=== PATIENT | female | born 1995 | race African-American/Black ===

== ENCOUNTER 2018-02-01 14:33 | Emergency (ER) | payer SELFPAY ==
[~2018-02-01] VITALS: Ht 162.6 cm; Wt 90.7 kg
[2018-02-01 14:45] VITALS: BP 101/66
--- NOTE | 2018-02-01 15:27 | Emergency Room Report ---
History of Present Illness General Chief Complaint: Flu Like Symptoms Source: Patient Present Illness HPI 22-year-old female presents to the emergency department complaining of 10 out of 10 in severity sore throat, cough, fevers/chills and headache with associated body aches 2 days. Patient reports that she has been taking ibuprofen which provides minimal relief only temporarily of her fevers and chills. Patient states she is not up-to-date with this year's flu vaccination however she is without other vaccination she reports that she has a couple ill contacts at home. Patient also reports new onset of nausea after taking vitamins on an empty stomach. Patient denies and states she has a girlfriend.Denies ear pain, lethargy, neck pain/stiffness, irritability, photophobia or dehydration. Denies Cp, Palpitations, LOC, AMS, seizures, paresthesias, or changes in Hearing or vision, no Sudden severe WILKINSON. Denies hx of smoking, asthma or COPD. Pt reports swallowing exacerbates her pain. Allergies: Coded Allergies: No Known Allergies (Unverified , 02/01/18) Patient History Past Medical History: see triage record Past Surgical History: none Pertinent Family History: none Last Menstrual Period: 12/24/17 Now: No Immunizations: UTD Reviewed Nursing Documentation: PMH: Agreed; PSxH: Agreed Nursing Documentation-PMH Past Medical History: No Stated History Review of Systems All Other Systems: negative except mentioned in HPI Physical Exam Vital Signs Date Time Temp Pulse Resp B/P (MAP) Pulse Ox O2 Delivery O2 Flow Rate FiO2 02/01/18 14:42 98.2 70 18 101/66 96 Room Air Sp02 EP Interpretation: reviewed, normal General Appearance: no apparent distress, alert, GCS 15, non-toxic Head: normocephalic, atraumatic Eyes: bilateral eye normal inspection, bilateral eye PERRL ENT: hearing grossly normal, normal voice, uvula midline, moist mucus membranes , nasal congestion, tonsillar swelling, pharyngeal erythema Neck: full range of motion Respiratory: lungs clear, normal breath sounds, no respiratory distress, no wheezing, speaking full sentences Cardiovascular #1: regular rate, rhythm, normal capillary refill Gastrointestinal: normal inspection, normal bowel sounds, non tender, non- distended, no guarding Musculoskeletal: back normal, gait/station normal, normal range of motion, non- tender Neurologic: alert, oriented x3, responsive, motor strength/tone normal, sensory intact, normal gait, speech normal, grossly normal Psychiatric: judgement/insight normal Skin: normal color, no rash, warm/dry, well hydrated Lymphatic: no adenopathy Medical Decision Making PA Attestation Dr. boogie is my supervising Physician whom patient management has been discussed with. Diagnostic Impression: Primary Impression: Pharyngitis, acute Qualified Codes: J02.0 - Streptococcal pharyngitis ER Course 22-year-old female presents to the emergency department complaining of 10 out of 10 in severity sore throat, cough, fevers/chills and headache with associated body aches 2 days. Patient reports that she has been taking ibuprofen which provides minimal relief only temporarily of her fevers and chills. Patient states she is not up-to-date with this year's flu vaccination however she is without other vaccination she reports that she has a couple ill contacts at home. Patient also reports new onset of nausea after taking vitamins on an empty stomach. Patient denies and states she has a girlfriend.Denies ear pain, lethargy, neck pain/stiffness, irritability, photophobia or dehydration. Denies Cp, Palpitations, LOC, AMS, seizures, paresthesias, or changes in Hearing or vision, no Sudden severe WILKINSON. Denies hx of smoking, asthma or COPD. Pt reports swallowing exacerbates her pain. Ddx considered but are not limited to URI, pneumonia, PE, strep pharyngitis, meningitis. Vital signs: Pt. is afebrile, the remaining VS are WNL H&PE are most consistent with Pharyngitis, presumed bacterial due to fevers and chills and PE, - no meningeal signs. ORDERS: none required at this time, the diagnosis is clinical ED INTERVENTIONS: Zofran PO-- Pt. declined reported sx resolved. DISCHARGE: At this time pt. is stable for d/c to home. Will provide printed patient care instructions, and any necessary prescriptions. Care plan and follow up instructions have been discussed with the patient prior to discharge. Last Vital Signs Date Time Temp Pulse Resp B/P (MAP) Pulse Ox O2 Delivery O2 Flow Rate FiO2 02/01/18 14:51 70 18 Room Air 02/01/18 14:42 98.2 101/66 96 Disposition: HOME, SELF-CARE Condition: Stable Scripts Codeine/Promethazine Hcl* (PROMETHAZINE-CODEINE SYRUP*) 118 Ml Syrup 5 ML ORAL Q6H PRN for For Cough, #120 ML 0 Refills Prov: Luciana Elkins 02/01/18 Ibuprofen* (MOTRIN*) 600 Mg Tablet 600 MG ORAL THREE TIMES A DAY, #30 TAB 0 Refills Prov: Luciana Elkins 02/01/18 Amoxicillin* (AMOXIL*) 500 Mg Capsule 500 MG ORAL BID for 10 Days, #20 CAP Prov: Luciana Elkins 02/01/18 Referrals: NOT CHOSEN IPA/MD,REFERRING (PCP) Departure Forms: Return to Work Return to Work Date: Feb 05, 2018 Work Restrictions: None Other Restrictions: May return Sooner if Symptoms have resolved. Return to Full Activity: Feb 05, 2018 Patient Instructions: Pharyngitis, [id number], Upper Respiratory Infection, Adult, [id number] Additional Instructions: Take medications as directed. Follow up with a Primary Care Provider in 3-5 days, even if your symptoms have resolved. --Please review list of primary care clinics, if you do not already have a primary care provider Return sooner to ED if new symptoms occur, or current symptoms become worse. Do not drink alcohol, drive, or operate heavy machinery while taking Cough Syrup as this may cause drowsiness. - Please note that this Emergency Department Report was dictated using [employer] security technology software, occasionally this can lead to erroneous entry secondary to interpretation by the dictation equipment. Luciana Elkins Feb 01, 2018 15:27
[2018-02-01] MEDS ORDERED: IBUPROFEN600 MG ORAL (15:32)
[2018-02-01] MEDS ORDERED: AMOXICILLIN500 MG ORAL (15:32)
[2018-02-01] MEDS ORDERED: PROMETHAZINE-C118 M1 ORAL (15:32)
[2018-02-01 15:37] VITALS: BP 108/68
== END 2018-02-01 15:38 | disposition home or self-care (01) ==
LOC: EMR 15:08
DX: J02.9 Acute pharyngitis, unspecified (principal)
CPT/HCPCS: 99283

== ENCOUNTER 2019-03-31 14:06 | Emergency (ER) | payer SELFPAY ==
[~2019-03-31] VITALS: Ht 162.6 cm; Wt 95.3 kg
[~2019-03-31 14:06] MED LIST: AMOXICILLIN500 MG ORAL; IBUPROFEN600 MG ORAL; PROMETHAZINE-C118 M1 ORAL
--- NOTE | 2019-03-31 14:15 | NUR ---
ED Nurse Note: PT. UNAVAILABLE UPON BEING CALLED FOR TRIAGE
--- NOTE | 2019-03-31 14:59 | Emergency Room Report ---
History of Present Illness General Chief Complaint: Back Pain-No Injury Source: Patient Present Illness HPI 23-year-old female presents to the emergency department complaining of 10 out of 10 severity pain to the right side of the lower back and right hamstring progressive x2 days. Patient reports she has a history of chronic pain in the back and states she has never had to stand more than 4 hours at a time and recently she has been standing at work up to 8 hours. Patient denies significant trauma or fall. She denies recent spinal procedures, history of cancer, night sweats or recent unintentional weight loss. She denies midline neck or back pain. denies numbness tingling or loss of sensation or gross motor movements of the extremities, incontinence of bowel or bladder. Denies CP, Palpitations, LOC, AMS, dizziness, Changes in Vision, weakness or a sudden severe headache. Allergies: Coded Allergies: No Known Allergies (Unverified , 02/01/18) Patient History Past Medical History: see triage record Past Surgical History: none Pertinent Family History: none Last Menstrual Period: LAST MONTH Now: No Reviewed Nursing Documentation: PMH: Agreed; PSxH: Agreed Review of Systems All Other Systems: negative except mentioned in HPI Physical Exam Vital Signs Date Time Temp Pulse Resp B/P (MAP) Pulse Ox O2 Delivery O2 Flow Rate FiO2 03/31/19 14:38 99.3 86 15 107/75 (86) 95 Room Air Sp02 EP Interpretation: reviewed, normal General Appearance: no apparent distress, alert, GCS 15, non-toxic Head: normocephalic, atraumatic Eyes: bilateral eye normal inspection, bilateral eye PERRL ENT: hearing grossly normal, normal voice Neck: full range of motion, no bony tend - no midline ttp, tender lateral - left trapezius ttp. Respiratory: chest non-tender, lungs clear, normal breath sounds, speaking full sentences Cardiovascular #1: regular rate, rhythm Musculoskeletal: normal range of motion, gait/station normal, tender - Right lumbar paraspinal and upper gluteal TTP, FROM with exacerbation of pain temporarily in certain flexed positions, no LE weakness, pt. is NVI, no erythema , midline bony ttp, step-offs or obvious deformity. Neurologic: alert, motor strength/tone normal, oriented x3, sensory intact, responsive, speech normal Psychiatric: judgement/insight normal Skin: normal color Medical Decision Making PA Attestation Dr. Nava is my supervising Physician whom patient management has been discussed with. Diagnostic Impression: Primary Impression: Lumbosacral strain Qualified Codes: S39.012A - Strain of muscle, fascia and tendon of lower back , initial encounter Additional Impression: Muscle strain ER Course 23-year-old female presents to the emergency department complaining of 10 out of 10 severity pain to the right side of the lower back and right hamstring progressive x2 days. Patient reports she has a history of chronic pain in the back and states she has never had to stand more than 4 hours at a time and recently she has been standing at work up to 8 hours. Patient denies significant trauma or fall. She denies recent spinal procedures, history of cancer, night sweats or recent unintentional weight loss. She denies midline neck or back pain. denies numbness tingling or loss of sensation or gross motor movements of the extremities, incontinence of bowel or bladder. Denies CP, Palpitations, LOC, AMS, dizziness, Changes in Vision, weakness or a sudden severe headache. Ddx considered but are not limited to Fracture, dislocation, contusion, epidural abscess, Sprain/Strain/Spasm Vital signs: are WNL, pt. is afebrile H&PE are most consistent with lumbosacral back strain. muscle strain. No suspicion of fractures. No symptoms or signs on physical exam which would require emergent imaging. ORDERS: X-ray not required at this time, no spinous process tenderness ED INTERVENTIONS: - None at this time. Pt. will be DC with conservative Tx. DISCHARGE: At this time pt. is stable for d/c to home. Will provide printed patient care instructions, and any necessary prescriptions. Care plan and follow up instructions have been discussed with the patient prior to discharge. Last Vital Signs Date Time Temp Pulse Resp B/P (MAP) Pulse Ox O2 Delivery O2 Flow Rate FiO2 03/31/19 14:38 99.3 86 15 107/75 (86) 95 Room Air Disposition: HOME, SELF-CARE Condition: Stable Referrals: [facility] Departure Forms: Return to Work Return to Work Date: Apr 01, 2019 Work Restrictions: No Heavy Lifting, No Prolonged Standing Other Restrictions: light duty. May return Sooner if Symptoms have resolved. Return to Full Activity: Apr 07, 2019 Patient Instructions: Lumbosacral Strain, Muscle Strain, [id number] Additional Instructions: - - After Emergency Dept. evaluation, It has been determined that you do not have an emergent condition or need for emergent intervention at this time. Given your current presentation and physical exam, it has been determined that you are stable for close outpatient follow-up and treatment. Take medications as directed. Do not drink alcohol, drive, or operate heavy machinery while taking Robaxin ( Muscle Relaxers) as this may cause drowsiness. Follow up with a Primary Care Provider in 3-5 days, even if your symptoms have resolved. --Please review list of primary care clinics, if you do not already have a primary care provider Return sooner to ED if new symptoms occur, or current symptoms become worse. - Please note that this Emergency Department Report was dictated using [employer] collector technology software, occasionally this can lead to erroneous entry secondary to interpretation by the dictation equipment. Luciana Elkins Mar 31, 2019 14:59
[2019-03-31] MEDS ORDERED: ROBAXIN-750750 MG PO (15:01)
[2019-03-31] MEDS ORDERED: IBUPROFEN600 MG ORAL (15:01)
[2019-03-31] MEDS ORDERED: LIDODERM700 M1 TOPIC (15:01)
[2019-03-31 15:04] VITALS: BP 107/75
--- NOTE | 2019-03-31 15:05 | NUR ---
ED Nurse Note: Patient walked in to ER c/o lower back pain 07/19. 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 AAO x4, VSS at this time.
[2019-03-31 15:11] VITALS: BP 107/75
--- NOTE | 2019-03-31 15:12 | NUR ---
ED Nurse Note: Pt cleared by health care Provider for discharge. DC instructions/prescription was given and explained to pt and verbalized understanding of teachings. All medical deviecs such as ID band removed. Pt is AAO x4, ambulatory and left with all personal belongings.
== END 2019-03-31 15:15 | disposition home or self-care (01) ==
LOC: EMR 14:55
DX: S39.012A Strain of muscle, fascia and tendon of lower back, initial encounter (principal); T14.8XXA Other injury of unspecified body region, initial encounter; X50.1XXA Overexertion from prolonged static or awkward postures, initial encounter; Y93.9 Activity, unspecified; Y92.9 Unspecified place or not applicable
CPT/HCPCS: 99281